=== PATIENT | male | born 1995 | race Caucasian/White ===

== ENCOUNTER 2017-01-26 01:33 | Emergency (ER) | payer OTHER ==
[2017-01-26] MEDS ORDERED: NS 1,000 ML IV ONE ×3 (01:38→05:26)
--- NOTE | 2017-01-26 01:44 | EDPHY ---
H & P HPI/ROS: HPI CHIEF COMPLAINT: Possible alcohol intoxication, Found Down at bottom of stairs. HISTORY OF PRESENT ILLNESS: This patient 21-year-old male, presents emergency room by EMS. 911 was called by his roommates as he was found at the bottom of his flight of stairs outside of his house. It is reported that he has been drinking alcohol this evening. EMS reports that they smell alcohol on him. He was minimally responsive to pain during their transport. Upon arrival I did Greet the patient he is in ER room 11 he has been placed in a cervical collar. Head to toe trauma exam does show abrasions to his hands and arms. He has a hematoma over the posterior occiput he does move all extremities response to painful stimuli. Past Medical History: Unknown medical history Past Surgical History: Unknown surgical history Social History: Unknown social history Family History: Unknown ROS REVIEW OF SYSTEMS: Limited due to the patient's clinical state. Exam Constitutional triage nursing summary reviewed, vital signs reviewed, lethargic, responds to painful stimuli Eyes normal conjunctivae and sclera, EOMI, dysconjugate gaze however pupils are equal 4 mm react to light but sluggish HENT head/neck: Posterior occiput shows hematoma without laceration, no obvious trauma to the neck, patient is in cervical collar, face stable moist mucus membranes, no epistaxis, neck supple/ no meningismus, no raccoon eyes. Respiratory clear to auscultation bilaterally, normal breath sounds, no respiratory distress, no wheezing. Cardiovascular rate normal, regular rhythm, no murmur, no edema, distal pulses normal. Gastrointestinal soft, non-tender, no rebound, no guarding, normal bowel sounds, no distension, no pulsatile mass. Genitourinary no CVA tenderness. Musculoskeletal moves all extremities to painful stimuli Skin pink, warm, & dry, no rash, abrasions to bilateral hands Neurologic lethargic Differential Diagnosis: Includes but is not limited to in a particular order acute alcohol intoxication, intracranial head trauma including bleed, skull fracture, epidural, subdural, pneumothorax Medical Decision Making: Plan for this patient he takes priority for CT scan, he will have a CT scan of his head and neck for trauma been immediately placed in a cervical collar upon arrival. Full ekg monitor tech. Will obtain a one view chest x-ray for trauma. Check blood work including alcohol level. Drug screen. Close monitoring of his airway. Re-evaluation: Blood alcohol level at 2:[address] scan of the head and neck for trauma without contrast. The results of the study are negative for acute traumatic injury The study was read by Dr. Arguello. I viewed the images myself on the PACS system. 0442AM: Patient remains hemodynamically stable resting comfortably. Still in cervical collar immobilization is he is too intoxicated to clear this. Vital signs are stable. He is still metabolize in the large amount of alcohol he drank. 0612AM: Patient reassessed at this time. He is ambulatory still intoxicated but speaking clearly nail and ambulatory. Steady gait. We are trying to find him a ride home. 0656AM: Patient ambulated well with no ataxia. Clinically sober. He is requesting an Uber ride home. Source: Patient, EMS Constitutional: Initial Vital Signs Heart Rate 86 01/26/17 01:40 Respiratory Rate 21 H 01/26/17 01:40 Blood Pressure 121/82 H 01/26/17 01:40 O2 Sat (%) 99 01/26/17 01:40 O2 Delivery Mode Room Air O2 (L/minute) 2 Allergies/Adverse Reactions: Unable to Assess Allergy (Unverified 01/26/17 01:40) Home Medications: Medication Instructions Recorded Unobtainable 01/26/17 Medical Decision Making - Data Points Laboratory Results: Laboratory Results 01/26/17 01:30 01/26/17 01:30 01/26/17 01/26/17 01/26/17 01:30 01:30 01:30 WBC 18.97 10^3/uL H 10^3/uL (3.80-9.50) RBC 5.34 10^6/uL 10^6/uL (4.40-6.38) Hgb 17.1 g/dL g/dL (13.7-17.5) Hct 49.5 % % (40.0-51.0) MCV 92.7 fL fL (81.5-99.8) MCH 32.0 pg pg (27.9-34.1) MCHC 34.5 g/dL g/dL (32.4-36.7) RDW 11.9 % % (11.5-15.2) Plt Count 292 10^3/uL 10^3/uL (150-400) MPV 8.8 fL fL (8.7-11.7) Neut % (Auto) 64.3 % % (39.3-74.2) Lymph % (Auto) 26.4 % % (15.0-45.0) Josephine % (Auto) 5.1 % % (4.5-13.0) Eos % (Auto) 2.9 % % (0.6-7.6) Baso % (Auto) 0.6 % % (0.3-1.7) Nucleat RBC Rel Count 0.0 % % (0.0-0.2) Absolute Neuts (auto) 12.19 10^3/uL H 10^3/uL (1.70-6.50) Absolute Lymphs (auto) 5.01 10^3/uL H 10^3/uL (1.00-3.00) Absolute Monos (auto) 0.97 10^3/uL H 10^3/uL (0.30-0.80) Absolute Eos (auto) 0.55 10^3/uL H 10^3/uL (0.03-0.40) Absolute Basos (auto) 0.12 10^3/uL H 10^3/uL (0.02-0.10) Absolute Nucleated RBC 0.00 10^3/uL 10^3/uL (0-0.01) Immature Gran % 0.7 % % (0.0-1.1) Immature Gran # 0.13 10^3/uL H 10^3/uL (0.00-0.10) PT 13.2 SEC SEC (12.0-15.0) INR 1.01 (0.83-1.16) APTT 26.2 SEC SEC (23.0-38.0) Sodium 150 mEq/L H mEq/L (134-144) Potassium 4.5 mEq/L mEq/L (3.5-5.2) Chloride 104 mEq/L mEq/L (97-110) Carbon Dioxide 25 mEq/l mEq/l (22-31) Anion Gap 21 mEq/L H mEq/L (8-16) BUN 17 mg/dL mg/dL (7-23) Creatinine 0.9 mg/dL mg/dL (0.7-1.3) Estimated GFR > 60 Glucose 88 mg/dL mg/dL (70-100) Calcium 10.2 mg/dL mg/dL (8.5-10.4) Ethyl Alcohol 401 mg/dL H* mg/dL (0-10) Medications Given: Discontinued Medications Sodium Chloride (Ns) 1,000 mls @ 0 mls/hr IV ONCE ONE; Wide Open PRN Reason: Protocol Stop: 01/26/17 01:39 Last Admin: 01/26/17 01:48 Dose: 1,000 mls Sodium Chloride (Ns) 1,000 mls @ 0 mls/hr IV ONCE ONE PRN Reason: Wide Open Stop: 01/26/17 04:41 Last Admin: 01/26/17 04:41 Dose: 1,000 mls Sodium Chloride (Ns) 1,000 mls @ 0 mls/hr IV ONCE ONE PRN Reason: Wide Open Stop: 01/26/17 05:27 Last Admin: 01/26/17 05:29 Dose: 1,000 mls Departure - Departure Disposition: Home, Routine, Self-Care Clinical Impression: Alcoholic intoxication Qualifiers: Complication of substance-induced condition: uncomplicated Qualified Code(s): F10.920 - Alcohol use, unspecified with intoxication, uncomplicated Condition: Good Instructions: Alcohol Intoxication (ED) Referrals: Patient,NotPresent [Unknown] - As per Instructions
[2017-01-26 01:45] LABS: % IMMATURE GRANULYOCYTES 0.7 % (0.0-1.1); ABSOLUTE IMMATURE GRANULOCYTES 0.13 10^3/uL (0.00-0.10); ADD DIFF? NO; ADD MORPH? NO; ADD SCAN? NO; ATYPICAL LYMPHOCYTE FLAG 10 (0-99); FRAGMENT RBC FLAG 0 (0-99); HEMATOCRIT 49.5 % (40.0-51.0); HEMOGLOBIN 17.1 g/dL (13.7-17.5); LEFT SHIFT FLG 0 (0-99); LIPEMIA HEMOLYSIS FLAG 90 (0-99); MEAN CELL HEMOGLOBIN CONCENTR. 34.5 g/dL (32.4-36.7); MEAN CELL VOLUME 92.7 fL (81.5-99.8); MEAN PLATELET VOLUME 8.8 fL (8.7-11.7); PLATELET CLUMPS FLAG 10 (0-99); PLATELET COUNT 292 10^3/uL (150-400); RED BLOOD CELL COUNT 5.34 10^6/uL (4.40-6.38); RED CELL DISTRIBUTION WIDTH 11.9 % (11.5-15.2)
[2017-01-26 01:54] LABS: INR 1.01 (0.83-1.16); PROTIME(PATIENT) 13.2 SEC (12.0-15.0)
[2017-01-26] MEDS ORDERED: LORazepam 2 MG/ML INJ ONE (01:54)
[2017-01-26 01:55] LABS: APTT 26.2 SEC (23.0-38.0)
[2017-01-26 01:56] LABS: ANION GAP 21 mEq/L (8-16); CALCIUM 10.2 mg/dL (8.5-10.4); CARBON DIOXIDE 25 mEq/l (22-31); CHLORIDE 104 mEq/L (97-110); CREATININE 0.9 mg/dL (0.7-1.3); GLOMERULAR FILTRATION RATE > 60; GLUCOSE 88 mg/dL (70-100); POTASSIUM 4.5 mEq/L (3.5-5.2); SODIUM 150 mEq/L (134-144)
[2017-01-26 02:08] LABS: ETHANOL SERUM 401 mg/dL (0-10)
[2017-01-26 07:05] VITALS: BP 120/69; PULSE 76; RESP 18; TEMP 97.5; O2SAT 94
== END 2017-01-26 07:04 | disposition home or self-care (01) ==
DX: F10.920 Alcohol use, unspecified with intoxication, uncomplicated (principal); E86.9 Volume depletion, unspecified
CPT/HCPCS: G0480; J2060

== ENCOUNTER 2018-09-20 04:11 | Emergency (ER) | payer OTHER ==
--- NOTE | 2018-09-20 04:22 | EDPHY ---
H & P Time Seen by Provider: 09/20/18 04:22 HPI/ROS: HPI CHIEF COMPLAINT: Racing heart, anxious, can't sleep HISTORY OF PRESENT ILLNESS: Patient 23-year-old male presents emergency room stating that around 3:00 a.m. He was trying to go to sleep and felt his heart racing, felt very anxious, numbness and tingling all over, was able to get to sleep. He states he has been all night as he has been studying. He was trying to go to bed around 3:00 a.m. However he had 2 large cups of coffee this morning , as well as very little to eat, as well as took 10 mg Adderall that he is not prescribed. He states he could not get to sleep due to most likely coffee, not eating much today, taking Adderall, and studying. Denies any chest pain or shortness of breath. He does report he was lightheaded earlier. No dizziness. No headache. No fever, no vomiting or diarrhea. Patient additionally reports to me he ate and drank very little today he had a kind a bar. He are the at any water today. Past Medical History: Denies significant medical history Past Surgical History: Denies significant surgical history Social History: Took Adderall earlier today. Student. Family History: Noncontributory ROS REVIEW OF SYSTEMS: 10 Systems were reviewed and negative with the exception of the elements mentioned in the history of present illness. Exam Constitutional anxious, nontoxic triage nursing summary reviewed, vital signs reviewed, awake/alert. Tachycardic at triage Eyes normal conjunctivae and sclera, EOMI, PERRLA. HENT normal inspection, atraumatic, moist mucus membranes, no epistaxis, neck supple/ no meningismus, no raccoon eyes. Respiratory clear to auscultation bilaterally, normal breath sounds, no respiratory distress, no wheezing. Cardiovascular tachycardia, regular rhythm, no murmur, no edema, distal pulses normal. Gastrointestinal soft, non-tender, no rebound, no guarding, normal bowel sounds, no distension, no pulsatile mass. Genitourinary no CVA tenderness. Musculoskeletal no midline vertebral tenderness, full range of motion, no calf swelling, no tenderness of extremities, no meningismus, good pulses, neurovascularly intact. Skin pink, warm, & dry, no rash, skin atraumatic. Neurologic awake, alert and oriented x 3, AAOx3, moves all 4 extremities equally, motor intact, sensory intact, CN II-XII intact, normal cerebellar, normal vision, normal speech. Psychiatric normal mood/affect. Heme/Lymph/Immune no lymphadenopathy. Differential Diagnosis: Includes but is not limited to in a particular order dehydration, SVT, electrolyte disturbance, anxiety, panic attack, cardiac arrhythmia, heart attack Medical Decision Making: Plan for this patient IV establishment 2 L of fluid, IV fluid bolus, IV Ativan 1 mg, basic labs, a chest x-ray, EKG, troponin, drug screen and re-evaluate Re-evaluation: Troponin 0.01 EKG time of EKG 4:29 a.m., sinus tach 117, left atrial enlargement. No signs of acute ischemia. ED x-ray chest one view: Negative acute abnormality. 0613: Patient re-evaluated this time heart rate is currently 92. He is feeling much better after IV fluids, IV Ativan. He denies any chest pain or shortness of breath. His heart rate is greatly improved with IV fluids and IV Ativan. Down to 92 from 120s. He states he feels much better. I believe his presentation today was due to dehydration caffeine intake, Adderall, staying up late causing anxiety dehydration and fast heart rate. I do recommend today he stays well hydrated rest. Return emergency room if there is any worsening symptoms. Patient's current vitals heart rate 91, pulse ox 94%, blood pressure 137/84. at 640AM EKG interpretation by me on record in [facility] system. Impression repeat EKG 6:47 a.m., sinus rhythm rate of 95, early Re mars pattern. No acute ischemia. I had Dr. Sepulveda, with cardiology evaluate his ekg, given appearance on ekg ( early re-mars), he believes this is an early-repol pattern ekg. Normal ekg. Fine with patient going home (no chest pain no sob). 7:12 a.m. patient re-evaluated this time resting comfortably. He denies any chest pain or shortness of breath. Patient presented the emergency room with anxiety, numbness and tingling in his hands and all over his body, tachycardia, in the setting of dehydration, Adderall use, large amount of caffeine and staying up all night. The patient had Two negative troponins he did not have any chest pain here. His EKG shows an early [place] mars pattern. Patient ambulated well throughout the emergency room without difficulty. Ambulated well. Denies any complaints at this time feels much better after IV fluids and IV Ativan. Patient is eager for discharge home. I discussed return precautions with him. Additionally do recommend he stays well hydrated and rest today. No vigorous activity. In the future I do recommend he does not drink large amount of caffeine, ingest Adderall, and stays up for prolonged periods of time. I recommend he gets appropriate rest, hydration.. He is comfortable with this plan. Source: Patient - Medical/Surgical History Other PMH: history unobtainable Constitutional: Initial Vital Signs Temperature (C) 36.9 C 09/20/18 04:28 Heart Rate 115 H 09/20/18 04:28 Respiratory Rate 18 09/20/18 04:28 Blood Pressure 161/120 H 09/20/18 04:28 O2 Sat (%) 98 09/20/18 04:28 O2 Delivery Mode Room Air Allergies/Adverse Reactions: No Known Allergies Allergy (Unverified 09/20/18 04:28) Home Medications: Medication Instructions Recorded NK [No Known Home Meds] 09/20/18 Medical Decision Making - Data Points Laboratory Results: Laboratory Results 09/20/18 04:41 09/20/18 04:41 09/20/18 09/20/18 09/20/18 06:55 06:30 04:45 WBC RBC Hgb Hct MCV MCH MCHC RDW Plt Count MPV Neut % (Auto) Lymph % (Auto) Morgan % (Auto) Eos % (Auto) Baso % (Auto) Nucleat RBC Rel Count Absolute Neuts (auto) Absolute Lymphs (auto) Absolute Monos (auto) Absolute Eos (auto) Absolute Basos (auto) Absolute Nucleated RBC Immature Gran % Immature Gran # Sodium Potassium Chloride Carbon Dioxide Anion Gap BUN Creatinine Estimated GFR Glucose Calcium POC Troponin I 0.01 ng/mL ng/mL 0.01 ng/mL ng/mL (0.00-0.08) (0.00-0.08) Urine Opiates Screen NEGATIVE (NEGATIVE) Urine Barbiturates NEGATIVE (NEGATIVE) Ur Phencyclidine Scrn NEGATIVE (NEGATIVE) Ur Amphetamine Screen NON-NEGATIVE H (NEGATIVE) U Benzodiazepines Scrn NEGATIVE (NEGATIVE) Urine Cocaine Screen NEGATIVE (NEGATIVE) U Marijuana (THC) Screen NON-NEGATIVE H (NEGATIVE) 09/20/18 09/20/18 04:41 04:41 WBC 15.15 10^3/uL H 10^3/uL (3.80-9.50) RBC 4.76 10^6/uL 10^6/uL (4.40-6.38) Hgb 15.0 g/dL g/dL (13.7-17.5) Hct 42.3 % % (40.0-51.0) MCV 88.9 fL fL (81.5-99.8) MCH 31.5 pg pg (27.9-34.1) MCHC 35.5 g/dL g/dL (32.4-36.7) RDW 12.1 % % (11.5-15.2) Plt Count 247 10^3/uL 10^3/uL (150-400) MPV 8.3 fL L fL (8.7-11.7) Neut % (Auto) 78.9 % H % (39.3-74.2) Lymph % (Auto) 12.6 % L % (15.0-45.0) Morgan % (Auto) 7.1 % % (4.5-13.0) Eos % (Auto) 0.7 % % (0.6-7.6) Baso % (Auto) 0.3 % % (0.3-1.7) Nucleat RBC Rel Count 0.0 % % (0.0-0.2) Absolute Neuts (auto) 11.94 10^3/uL H 10^3/uL (1.70-6.50) Absolute Lymphs (auto) 1.91 10^3/uL 10^3/uL (1.00-3.00) Absolute Monos (auto) 1.08 10^3/uL H 10^3/uL (0.30-0.80) Absolute Eos (auto) 0.11 10^3/uL 10^3/uL (0.03-0.40) Absolute Basos (auto) 0.05 10^3/uL 10^3/uL (0.02-0.10) Absolute Nucleated RBC 0.00 10^3/uL 10^3/uL (0-0.01) Immature Gran % 0.4 % % (0.0-1.1) Immature Gran # 0.06 10^3/uL 10^3/uL (0.00-0.10) Sodium 136 mEq/L mEq/L (135-145) Potassium 3.4 mEq/L L mEq/L (3.5-5.2) Chloride 99 mEq/L mEq/L (97-110) Carbon Dioxide 22 mEq/l mEq/l (22-31) Anion Gap 15 mEq/L H mEq/L (6-14) BUN 18 mg/dL mg/dL (7-23) Creatinine 0.9 mg/dL mg/dL (0.7-1.3) Estimated GFR > 60 Glucose 117 mg/dL H mg/dL (70-100) Calcium 9.9 mg/dL mg/dL (8.5-10.4) POC Troponin I Urine Opiates Screen Urine Barbiturates Ur Phencyclidine Scrn Ur Amphetamine Screen U Benzodiazepines Scrn Urine Cocaine Screen U Marijuana (THC) Screen Medications Given: Discontinued Medications Sodium Chloride (Ns) 2,000 mls @ 0 mls/hr IV EDNOW ONE; Wide Open PRN Reason: Protocol Stop: 09/20/18 04:29 Last Admin: 09/20/18 04:42 Dose: 2,000 mls Lorazepam (Ativan Injection) 1 mg IVP EDNOW ONE Stop: 09/20/18 04:29 Last Admin: 09/20/18 04:43 Dose: 1 mg Point of Care Test Results: Chemistry 09/20/18 09/20/18 06:55 04:45 POC Troponin I 0.01 ng/mL ng/mL 0.01 ng/mL ng/mL (0.00-0.08) (0.00-0.08) Departure - Departure Disposition: Home, Routine, Self-Care Clinical Impression: Anxiety, Dehydration Condition: Good Instructions: Dehydration (ED), Anxiety (ED) Additional Instructions: 1. Drink lots of fluids stay well-hydrated 2. Return to the emergency room if he develops worsening symptoms includes vomiting, not doing well 3. Please rest today. 4. Decrease your caffeine intake. Referrals: NONE *PRIMARY CARE P,. [Primary Care Provider] - As per Instructions [facility] [Clinic] - As per Instructions Saud Sepulveda MD [Medical Doctor] - As per Instructions Stand Alone Forms: School Excuse
[2018-09-20] MEDS ORDERED: LORazepam 2 MG/ML INJ IVP ONE (04:28)
[2018-09-20] MEDS ORDERED: NS 2,000 ML IV ONE (04:28)
[2018-09-20 04:52] LABS: PLATELET COUNT 247 10^3/uL (150-400)
[2018-09-20 07:48] VITALS: BP 112/76
--- NOTE | 2018-09-20 08:04 | CPEKG ---
Test Reason : OPEN Blood Pressure : / mmHG Vent. Rate : 095 BPM Atrial Rate : 095 BPM P-R Int : 204 ms QRS Dur : 101 ms QT Int : 362 ms P-R-T Axes : 053 028 012 degrees QTc Int : 455 ms Sinus rhythm Borderline prolonged NH interval Confirmed by Nigel Dhaliwal ([id number]) on 09/20/2018 8:03:52 AM Referred By: Nigel Dhaliwal Confirmed By:Nigel Dhaliwal
--- NOTE | 2018-09-20 08:04 | CPEKG ---
Test Reason : OPEN Blood Pressure : / mmHG Vent. Rate : 117 BPM Atrial Rate : 118 BPM P-R Int : 186 ms QRS Dur : 091 ms QT Int : 310 ms P-R-T Axes : 058 038 -01 degrees QTc Int : 433 ms Sinus tachycardia Left atrial enlargement Confirmed by Nigel Dhaliwal ([id number]) on 09/20/2018 8:03:53 AM Referred By: Nigel Dhaliwal Confirmed By:Nigel Dhaliwal
== END 2018-09-20 07:44 | disposition home or self-care (01) ==
DX: F41.9 Anxiety disorder, unspecified (principal); E86.0 Dehydration
CPT/HCPCS: 80305; 84484-ER; 96374; J2060